=== PATIENT | male | born 1955 | race Caucasian/White ===

== ENCOUNTER 2018-08-09 11:07 | Emergency (ER) | payer MEDICARE ==
[2018-08-09 12:17] LABS: #Eosinphils 0.1 thou/uL (0.0-0.7); #Lymphocytes 0.8 thou/uL (1.20-3.40); #Monocytes 0.4 thou/uL (0.11-0.59); #Neutrophils 6.1 thou/uL (1.40-6.50); %Basophils 0.5 % (0.0-1.0); %Eosinophils 1.1 % (0.0-10.0); %Monocytes 5.6 % (0.0-10.0); %Neutrophils 81.7 % (42.0-75.0); Hemoglobin 15.1 g/dL (14.0-18.0); Mean Corpuscular HGB CONC 34.2 g/dL (32.0-36.0); Mean Corpuscular Hemoglobin 31.2 pg (27.0-31.0); Mean Corpuscular Volume 91.2 fL (78.0-98.0); Mean Platelet Volume 7.6 fL (7.4-10.4); Platelet Count 184 thou/uL (130-400); RBC Distribution Width 10.9 % (11.5-14.5); Red Blood Cell (RBC) Count 4.84 mill/uL (4.70-6.10); White Blood Cell (WBC) Count 7.4 thou/uL (4.8-10.8)
[2018-08-09 12:23] LABS: Anion Gap 12 mmol/L (10-20); BUN (Urea Nitrogen) 14 mg/dL (8.4-25.7); Calc. Creatinine Clearance 0 mL/min (70-130); Calcium 9.8 mg/dL (7.8-10.44); Carbon Dioxide 24 mmol/L (23-31); Chloride 108 mmol/L (98-107); Estimated GFR-MDRD Greater than 90; Potassium 4.2 mmol/L (3.5-5.1); Sodium 140 mmol/L (136-145)
--- NOTE | 2018-08-09 12:26 | RAD ---
AP PELVIS: Date: 08/09/18 COMPARISON: None. HISTORY: Fall at home with pelvic pain. FINDINGS: Single view of the pelvis shows no evidence of acute fracture or dislocation. No degenerative changes are seen. IMPRESSION: Unremarkable exam. POS: [facility]
[2018-08-09 12:31] LABS: Glucose 104 mg/dL (80-115)
--- NOTE | 2018-08-09 13:43 | CT ---
BRAIN CT WITHOUT IV CONTRAST: Date: 08/09/18 HISTORY: Right head injury following trauma, fall at home, hit head, right-sided laceration. FINDINGS: There is focal soft tissue swelling over the right frontal region. There is a very tiny, thin linear area of increased attenuation density at the anterolateral aspect of the middle cranial fossa and tem poral lobe. I feel that this does represent a very small subdural hematoma. There is no significant m ass effect or midline shift. There is some mild atrophy. No evidence for an associated skull fracture . There is partial opacification of the left posterior inferior mastoid. IMPRESSION: Evidence for a very tiny, thin, right-sided subdural hematoma overlying the right anterior temporal l obe. Findings discussed with Dr. Lorenz in the ER at 1220 hours. CODE CR. POS: [facility]
--- NOTE | 2018-08-09 13:51 | CT ---
CERVICAL SPINE CT SCAN WITHOUT IV CONTRAST: History: Cervical injury follow trauma, fall. Hit head. FINDINGS: There are some changes of spondylosis with disc osteophytosis and disc space narrowing, particularly at C6-7. No evidence for acute fracture or facet dislocation. IMPRESSION: Cervical spondylosis. No fracture or facet dislocation. POS: [facility]
== END 2018-08-09 14:19 | disposition short-term general hospital (02) ==
LOC: NAV ERS 11:07
DX: S01.01XA Laceration without foreign body of scalp, initial encounter (principal); S06.5X0A Traumatic subdural hemorrhage without loss of consciousness, initial encounter; I25.10 Atherosclerotic heart disease of native coronary artery without angina pectoris; F03.90 Unspecified dementia, unspecified severity, without behavioral disturbance, psychotic disturbance, mood disturbance, and anxiety; E78.5 Hyperlipidemia, unspecified; F32.9 Major depressive disorder, single episode, unspecified; Z79.82 Long term (current) use of aspirin; Z79.899 Other long term (current) drug therapy; W19.XXXA Unspecified fall, initial encounter
CPT/HCPCS: 12014; 70450; 72125; 72170; 80048; 85025; 90471; 93005

== ENCOUNTER 2020-05-16 15:40 | Emergency (ER) | payer MEDICARE ==
[2020-05-16 16:16] LABS: Bilirubin Small (Negative); Blood, Urine Trace (Negative); Clarity Clear (Clear); Glucose, Urine (Dipstick) Negative (Negative); Ketone, Urine 15 mg/dL (Negative); Leukocyte Negative (Negative); Nitrite Negative (Negative); Protein, Urine (Dipstick) Negative (Neg-Trace); Specific Gravity, Urine 1.025 (1.005-1.030)
[2020-05-16 16:19] LABS: Bacteria/HPF Rare-Few HPF (None Seen); WBC/HPF 0-3 HPF (0-3)
--- NOTE | 2020-05-16 16:40 | RAD ---
Portable frontal chest radiograph: 05/16/2020 COMPARISON: None HISTORY: Possible urinary tract infection, altered mental status with confusion FINDINGS: Lungs are clear. Heart and mediastinal contours appear within normal limits. IMPRESSION: No acute findings.
--- NOTE | 2020-05-16 16:47 | CT ---
Head CT without contrast 05/16/2020: COMPARISON: 08/28/2018 HISTORY: Altered mental status, dementia TECHNIQUE: Axial CT imaging at 5 mm intervals from vertex through skull base without contrast FINDINGS: Imaged paranasal sinuses and mastoid air cells are well-aerated. No displaced calvarial fra cture. No intracranial hemorrhage, midline shift, mass effect, or ventricular enlargement. Stable mild periventricular hypodensity suggesting small vessel disease. IMPRESSION: No intracranial hemorrhage.
[2020-05-16 16:54] LABS: ALT (SGPT) 18 U/L (8-55); AST (SGOT) 19 U/L (5-34); Albumin 4.2 g/dL (3.4-4.8); Alkaline Phosphatase 85 U/L (40-110); Anion Gap 16 mmol/L (10-20); BUN (Urea Nitrogen) 14 mg/dL (8.4-25.7); Calc. Creatinine Clearance 0 mL/min (70-130); Calcium 9.1 mg/dL (7.8-10.44); Carbon Dioxide 23 mmol/L (23-31); Chloride 107 mmol/L (98-107); Estimated GFR-MDRD 77; Globulin 2.7 g/dL (2.4-3.5); Glucose 91 mg/dL (80-115); Potassium 4.1 mmol/L (3.5-5.1); Protein, Total 6.9 g/dL (5.8-8.1); Sodium 142 mmol/L (136-145)
[2020-05-16 17:18] LABS: Hemoglobin 14.1 g/dL (14.0-18.0); Mean Corpuscular HGB CONC 32.9 g/dL (32.0-36.0); Mean Corpuscular Hemoglobin 30.8 pg (27.0-31.0); Mean Corpuscular Volume 93.6 fL (78.0-98.0); Mean Platelet Volume 8.5 fL (7.4-10.4); Platelet Count 159 thou/uL (130-400); RBC Distribution Width 10.9 % (11.5-14.5); Red Blood Cell (RBC) Count 4.58 mill/uL (4.70-6.10); White Blood Cell (WBC) Count 6.2 thou/uL (4.8-10.8)
[2020-05-16 17:31] LABS: Band 1 % (5-11); Eosinophils 3 % (0-10); Lymphocytes 19 % (21-51); MDiff Complete? YES; Monocytes 5 % (0-10); Neutrophil 70 % (42-75); RBC Morphology Normal; Reactive Lymphocytes 2 % (0-10)
== END 2020-05-16 18:15 | disposition home or self-care (01) ==
LOC: NAV ERS 15:40
DX: R53.1 Weakness (principal); E78.5 Hyperlipidemia, unspecified; F32.9 Major depressive disorder, single episode, unspecified; Z79.899 Other long term (current) drug therapy
CPT/HCPCS: 51701; 70450; 71045; 80053; 81003; 81015; 85025; 87086